=== PATIENT | female | born 1990 | race Two or more races ===

== ENCOUNTER 2024-05-03 11:00 | Emergency (ER) | payer OTHER ==
[~2024-05-03] VITALS: Ht 165.1 cm; Wt 97.7 kg
--- NOTE | 2024-05-03 11:23 | ED.PDOC ---
History of Present Illness(SKN HPI Comments 34 y/o F, presents to the ED for CC of wound check. Patient states, that she had a cesarian on (04/22/24) and followed up with urgent care for dressing removal as instructed by her OB-COMPOSITION MIXER provider. Patient relays, urgent care provider sent her to ED for a further evaluation of a possible; suprapubic abbesses to the right incision. Patient comments on, pink yellow drainage from the incision. Patient denies fever, chills, body-aches, or N/V/D. No other symptoms or modifying factors at this time. Time Seen by MD: 11:00 History of Present Illness: Nurses Notes, Medications, Allergies Allergies: Coded Allergies: NO KNOWN ALLERGIES (Unverified , 05/03/24) Home Meds Active Scripts Cephalexin (KEFLEX CAPSULE) 250 Mg Cp, 250 MG PO TID for 5 Days, #15 BOTTLE Prov:MILA ROY MD 05/03/24 Information Source: Patient Mode of Arrival: Ambulatory Severity: Mild Timing: Days Duration: Since onset Prehospital treatment: None Location: Abdomen Developed: Generalized erythema Object: None Condition of Object: None Wound Type: None History of: None Associated Signs and Symptoms: None Past Medical History PAST MEDICAL HISTORY: Denies Surgical History: COMPOSITION MIXER History: Denies all COMPOSITION MIXER Hx Family History Family History: Unknown Social History Smoker: Non-Smoker Alcohol: Denies ETOH Use Drugs: Denies Drug Use Lives In: Home Constitutional: denies: chills, diaphoresis, fatigue, fever, malaise, sweats, weakness, others EENTM: denies: blurred vision, double vision, ear bleeding, ear discharge, ear drainage, ear pain, ear ringing, eye pain, eye redness, hearing loss, mouth pain, mouth swelling, nasal discharge, nose bleeding, nose congestion, nose pain, photophobia, tearing, throat pain, throat swelling, voice changes, others Respiratory: denies: cough, hemoptysis, orthopnea, SOB at rest, shortness of breath, SOB with excertion, stridor, wheezing, others Cardiovascular: denies: chest pain, dizzy spells, diaphoresis, Dyspnea on exertion, edema, irregular heart beat, left arm pain, lightheadedness, palpitations, PND, syncope, others Gastrointestinal: denies: abdomen distended, abdominal pain, blood streaked bowels, constipated, diarrhea, dysphagia, difficulty swallowing, hematemesis, melena, nausea, poor appetite, poor fluid intake, rectal bleeding, rectal pain, vomiting, others Genitourinary: denies: abnormal vagina bleeding, burning, dyspareunia, dysuria, flank pain, frequency, hematuria, incontinence, pain, , vagina discharge, urgency, others Neurological: denies: dizziness, fainting, headache, left sided numbness, left sided weakness, numbness, paresthesia, pre-existing deficit, right sided n umbness, right sided weakness, seizure, speech problems, tingling, tremors, weakness, others Musculoskeletal: denies: back pain, gout, joint pain, joint swelling, muscle pain, muscle stiffness, neck pain, others Integumetry: reports: lumps; denies: bruises, change in color, change in hair/nails, dryness, laceration, lesions, rash, wounds, others Allergic/Immunocompromised: denies: Difficulty Healing, Frequent Infections, Hives, Itching, others Hematologic/Lymphatic: denies: anemia, blood clots, easy bleeding, easy bruising, swollen glands, others Endocrine: denies: excessive hunger, excessive sweating, excessive thirst, excessive urination, flushing, intolerance to cold, intolerance to heat, unexplained weight gain, unexplained weight loss, others Psychiatric: denies: anxiety, bipolar disorder, depression, hopeless, panic disorder, schizophrenia, sleepless, suicidal, others All Other Systems: Reviewed and Negative Physical Exam General Appearance: Moderate Distress HEENT: Normal ENT Inspection, Pharynx Normal, TMs Normal Neck: Full Range of Motion, Non-Tender, Normal, Normal Inspection Respiratory: Chest Non-Tender, Lungs Clear, No Accessory Muscle Use, No Respiratory Distress, Normal Breath Sounds Cardiovascular: No Edema, No JVD, No Murmur, No Gallop, Normal Peripheral Pulses, Regular Rate/Rhythm Breast Exam: Deferred Gastrointestinal: No Organomegaly, Non Tender, No Pulsatile Mass, Normal Bowel Sounds, Soft Genitalia: Deferred Pelvic: Deferred Rectal: Deferred Extremities: No calf tenderness, Normal capillary refill, Normal inspection, Normal range of motion, Non-tender, No pedal edema Musculoskeletal : Apperance: Normal Neurologic: Alert, core feeder II-XII nml as Tested, No Motor Deficits, Normal Affect, Normal Mood, No Sensory Deficits Cerebellar Function: Normal Reflexes: Normal Skin: Dry, Normal Color, Warm, Wounds ( area healing well) Peripheral Pulses: 3+ Radial (R), 3+ Radial (L) Lymphatic: No Adenopathy Was a procedure done? Was a procedure done?: No Differential Diagnosis (INTG) Differential Diagnosis: Cellulitis, Hematoma Differential Diagnosis: Abscess, Atopic dermatitis, Cellulitis, Contact Dermatitis X-Ray, Labs, Meds, VS Vital Signs Date Time Temp Pulse Resp B/P (MAP) Pulse Ox O2 Delivery O2 Flow Rate FiO2 05/03/24 11:50 99.4 86 16 122/67 (85) 97 05/03/24 11:44 86 16 97 Room Air 05/03/24 11:44 99.4 86 16 122/67 (85) 97 99.4 Lab Test 05/03/24 12:24 Range/Units Urine Color Yellow Yellow Urine Clarity Turbid H Clear Urine pH 6.0 5.0-9.0 Urine Specific Barrett 1.023 1.001-1.035 Urine Protein Trace H Negative Urine Ketones Negative Negative Urine Blood 3+ H Negative /uL Urine Nitrite Negative Negative Urine Bilirubin Negative Negative Urine Urobilinogen Normal Negative mg/dL Urine Leukocyte Esterase 3+ Negative /uL Urine RBC 10 0 - 4 /hpf Urine Microscopic WBC 114 H 0-5 /HPF Urine Squamous Epithelial Cells Few <5 /hpf Urine Bacteria None seen None Seen /hpf Urine Mucus Few None Seen Urine Glucose Normal Normal mg/dL Patient alert. Came in because she thought she had a serious infection in the site. Vitals stable. Answering all questions. On examination abdomen is soft nontender. site does not have any abscess. No sign of any serious infection. She does have abrasions over the healing site but no pus. Explained to the patient that she will be getting antibiotics for precautionary measures not for abscess. Explained to her that antibiotic and . Patient insists on antibiotic. Was told to follow up with her primary care physician. Was told to come back if there is any problem. No sign of any sepsis at any time. She was going to drive to [facility]. Urinalysis shows UTI. She was given Rocephin. She was given prescription of Keflex antibiotic. Time of 1ST Reevaluation: 11:30 Reevaluation 1ST: Improved Patient Education/Counseling: Diagnosis, Treatment Family Education/Counseling: No Family Present Departure 1 Departure Time of Disposition: 12:57 Impression: Primary Impression: Sepsis due to urinary tract infection Additional Impressions: Encounter for wound care Sepsis, unspecified organism Qualified Codes: A41.9 - Sepsis, unspecified organism Disposition: HOME / SELF CARE / HOMELESS Condition: Good e-Prescriptions Cephalexin (KEFLEX CAPSULE) 250 Mg Cp 250 MG PO TID for 5 Days, #15 BOTTLE Prov: MILA ROY MD 05/03/24 Discharged With: Self Critical Care Note Critical Care Time?: No Stability Stability form required: No Heart Score Heart Score: Heart Score Response (Comments) Value History N/A 0 EKG N/A 0 Age N/A 0 Risk Factors N/A 0 Troponin N/A 0 Total 0 I personally scribed for MILA ROY MD ([email or web address]) on 05/03/24 at 11:23. Electronically submitted by Neva Vela ([email or web address]). I personally scribed for MILA ROY MD ([email or web address]) on 05/03/24 at 11:30. Electronically submitted by Neva Vela ([email or web address]). MILA ROY MD May 03, 2024 11:23
[2024-05-03 11:44] VITALS: TEMP 99.4
[2024-05-03 11:50] VITALS: BP 122/67; PULSE 86; RESP 16; O2SAT 97
[2024-05-03 12:48] LABS: Urine Bacteria None Seen /hpf (None Seen)
[2024-05-03] MEDS ORDERED: CEPH250C PO (12:58)
[2024-05-03 13:24] LABS: Urine Blood 3+ /uL (Negative); Urine Clarity Turbid (Clear); Urine Color Yellow (Yellow); Urine Mucus FEW (None Seen); Urine Protein, UAD TRACE (Negative); Urine Specific Gravity 1.023 (1.001-1.035); Urine Squamous Epithelial Cell FEW /hpf (<5); Urine Urobilinogen Normal (Negative); Urine WBC 114 /HPF (0-5)
[2024-05-03] MEDS: cefTRIAXone SOD 1,000 MG VL IM ONE (15:32)
[2024-05-03] MEDS: LIDOCAINE 1% HCL (LOCAL ANESTH.) INJ 20ML MDV IJ ONE (15:34)
== END 2024-05-03 15:45 | disposition home or self-care (01) ==
LOC: ER 11:00
DX: A41.9 Sepsis, unspecified organism (principal); N39.0 Urinary tract infection, site not specified; Z98.890 Other specified postprocedural states
CPT/HCPCS: 81001; 96372; 99283; J0696; J2003